=== PATIENT | male | born 1975 | race Caucasian/White ===

== ENCOUNTER 2017-04-29 12:51 | Emergency (ER) | payer OTHER ==
[2017-04-29] MEDS ORDERED: DIPHTH,PERTUSS(ACELL),TET TOX 0.5 ML DISP.SYRIN. VAX IM ONE ×2 (12:56→13:00)
[2017-04-29 12:57] VITALS: BP 157/99
[2017-04-29] MEDS ORDERED: LIDOCAINE 2% 20 ML VIAL. IJ ONE (13:00)
[2017-04-29] MEDS ORDERED: LIDOCAINE 2% 20 ML VIAL. ONE (13:01)
[2017-04-29] MEDS ORDERED: CEPHALEXIN 250 MG CAPSULE ONE (13:38)
[2017-04-29] MEDS ORDERED: CEPH-264 PO (13:45)
--- NOTE | 2017-04-29 13:45 | PHYS DOC ---
Adult General Chief Complaint Chief Complaint: LACERATION/AVULSION HPI HPI Patient is a 41 year old male who presents with complaint of laceration to the left index finger. Patient states that this took place approximately 3 months prior to arrival. 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 Patient denies any loss of function to the finger. Patient placed pressure on the wound prior to arrival in the emergency department. Patient's tetanus status is not up-to-date. Patient denies any other injuries. Review of Systems Review of Systems Constitutional: Denies fever or chills [] Eyes: Denies change in visual acuity, redness, or eye pain [] HENT: Denies nasal congestion or sore throat [] Musculoskeletal: Denies back pain or joint pain [] Integument: Laceration to left index finger[] Neurologic: Denies headache, focal weakness or sensory changes [] Current Medications Current Medications Current Medications Medications (Trade) Dose Ordered Sig/Balaji Start Time Stop Time Status Last Admin Dose Admin Diphtheria/ Tetanus/Acell Pertussis (Boostrix) 0.5 ml ONCE ONCE 04/29/17 13:00 04/29/17 13:01 DC 04/29/17 13:00 0.5 ML Lidocaine HCl 20 ml STK-MED ONCE 04/29/17 13:01 04/29/17 13:02 DC Allergies Allergies Allergies Coded Allergies Type Severity Reaction Last Updated Verified No Known Drug Allergies 04/29/17 No Physical Exam Physical Exam Constitutional: Well developed, well nourished, no acute distress, non-toxic appearance. [] HENT: Normocephalic, atraumatic, bilateral external ears normal, oropharynx moist, no oral exudates, nose normal. [] Eyes: PERRLA, EOMI, conjunctiva normal, no discharge. [] Skin: Warm, dry, no erythema, 4 cm linear laceration along lateral aspect of left index finger, no visible tendon or bone in wound bed, multiple small black hairs present. [] Back: No tenderness, no CVA tenderness. [] Extremities: No tenderness, no cyanosis, no clubbing, ROM intact, no edema. [] Neurologic: Alert and oriented X 3, normal motor function, normal sensory function, no focal deficits noted. [] Current Patient Data Vital Signs Vital Signs Date Time Temp Pulse Resp B/P (MAP) Pulse Ox O2 Delivery O2 Flow Rate FiO2 04/29/17 12:57 98.6 108 16 97 Room Air Lab Results Current Medications Medications (Trade) Dose Ordered Sig/Balaji Route PRN Reason Start Time Stop Time Status Last Admin Dose Admin Diphtheria/ Tetanus/Acell Pertussis (Boostrix) 0.5 ml STK-MED ONCE VAX IM 04/29/17 12:56 04/29/17 12:57 DC Diphtheria/ Tetanus/Acell Pertussis (Boostrix) 0.5 ml ONCE ONCE VAX IM 04/29/17 13:00 04/29/17 13:01 DC 04/29/17 13:00 Lidocaine HCl 20 ml 1X ONCE IJ 04/29/17 13:00 04/29/17 13:01 DC Lidocaine HCl 20 ml STK-MED ONCE .ROUTE 04/29/17 13:01 04/29/17 13:02 DC Cephalexin HCl (Keflex) 250 mg STK-MED ONCE .ROUTE 04/29/17 13:38 04/29/17 13:39 DC EKG EKG Not performed[] Radiology/Procedures Radiology/Procedures Indication: finger laceration Procedure: The patient was placed in the appropriate position and anesthesia of the laceration was achieved with injection of lidocaine 2% at the base of the left index finger as a digital block. The area was then copiously irrigated with high-pressure saline and was debrided of visible hairs in the wound bed. The laceration was closed using 4-0 Ethilon simple interrupted sutures. The wound area was then dressed with a Band-Aid. Total repaired wound length: 4 cm. Other Items: Total suture count: 4 The patient tolerated the procedure without difficulty. Complications: None.[] Course & Med Decision Making Course & Med Decision Making Pertinent Labs and Imaging studies reviewed. (See chart for details) Laceration was repaired as outlined in the procedure note. Patient started on Keflex for prophylaxis. Advised patient follow-up in 10-14 days for removal of sutures. Advised return emergency department for any worsening symptoms. Patient voiced understanding and in agreement with treatment plan. Dragon Disclaimer Dragon Disclaimer This chart was dictated in whole or in part using Voice Recognition software in a busy, high-work load, and often noisy Emergency Department environment. It may contain unintended and wholly unrecognized errors or omissions. Departure Departure: Impression: Primary Impression: Laceration of index finger Disposition: 01 HOME, SELF-CARE Condition: IMPROVED Referrals: EHSAN SANDS MD (PCP) Patient Instructions: Laceration Care, Adult Additional Instructions: Follow-up with your primary doctor in 10-14 days for removal of your sutures. Return to the emergency department for any worsening symptoms. Scripts Cephalexin (KEFLEX) 500 Mg Capsule 1 CAP PO BID, #10 CAP Prov: NADEGE SMALL MD 04/29/17 Problem Qualifiers Primary Impression: Laceration of index finger Encounter type: initial encounter Damage to nail status: without damage Foreign body presence: with foreign body Laterality: left Qualified Codes: S61.221A - Laceration with foreign body of left index finger without damage to nail, initial encounter NADEGE SMALL MD Apr 29, 2017 13:45
== END 2017-04-29 13:47 | disposition home or self-care (01) ==
LOC: ER 12:51
DX: S61.211A Laceration without foreign body of left index finger without damage to nail, initial encounter (principal); W26.0XXA Contact with knife, initial encounter; Y93.89 Activity, other specified; Y99.8 Other external cause status; Y92.89 Other specified places as the place of occurrence of the external cause
CPT/HCPCS: 12002; 90471; 90715; 99283-25